=== PATIENT | male | born 1995 | race Hispanic/Latino ===

== ENCOUNTER 2022-12-21 10:00 | Emergency (ER) | payer OTHER, SELFPAY ==
[2022-12-21 10:25] VITALS: BP 151/78; PULSE 82; RESP 18; TEMP 37.1; O2SAT 100
[2022-12-21] MEDS: TETANUS,DIPHTHERIA,AC PERTUSSIS ADULT (0.5 ML) BOOSTRIX IM (10:43)
--- NOTE | 2022-12-21 10:48 | ED.GENADULT ---
HPI - General Adult General Chief complaint: Wound/Laceration Stated complaint: Left Hand Laceration Source: patient and other ([facility]) Mode of arrival: ambulatory Limitations: language barrier History of Present Illness HPI narrative: Patient presents for evaluation of laceration to the 5th digit of the left hand. Symptom onset just prior to arrival. He was doing some navid work was using a metal tool when it cut him. Pain has been constant since that time, rated 8/10 in severity, without descriptive quality. He does have damage to the nail plate. He is not diabetic. He does not smoke. He is right-hand dominant. Denies paresthesias. Date of last tetanus unknown. Related Data Home Medications Medication Instructions Recorded Confirmed No Home Medications 12/21/22 12/21/22 Allergies Allergy/AdvReac Type Severity Reaction Status Date / Time No Known Allergies Allergy Verified 12/21/22 10:37 Review of Systems Review of Systems: CONSTITUTIONAL: Denies fever, chills, or sweats. EYES: Denies visual changes, redness, or discharge. ENT: Denies rhinorrhea, congestion, sore throat, or otalgia. CARDIOVASCULAR: Denies chest pain, palpitations, or edema. RESPIRATORY: Denies cough or dyspnea. GASTROINTESTINAL: Denies abdominal pain, nausea, vomiting, or diarrhea. GENITOURINARY: Denies dysuria or hematuria. SKIN: reports laceration to the 5th digit left hand MUSCULOSKELETAL: Reports pain in the 5th digit of the left hand NEUROLOGIC: Denies headache, numbness, dizziness, or weakness. PSYCHIATRIC: Denies anxiety or depression. [facility] Past Medical History Medical History No pertinent past medical history Surgical History Surgical History No pertinent past surgical history Family History Family History (Updated 12/21/22 @ 10:50 by ALO Oh, ) Mother Family history non-contributory Social History Social History Smoking status: Never smoker Substance use: never Living arrangements: with family Gender identity (if verbalized by the patient): Male Spiritual care concerns: No Exam Narrative: GENERAL: Well-appearing, well-nourished, and in no acute distress. HEAD: Normocephalic, atraumatic. EYES: PERRLA and EOMI. ENT: Nares clear, no rhinorrhea or epistaxis. Mucous membranes moist. Oropharynx without tonsillar hypertrophy exudate or other lesions. Bilateral TMs pearly vivar nonbulging NECK: Supple. No adenopathy or masses. No carotid bruits or JVD CHEST: Clear to auscultation. No respiratory distress. No wheezes rales or rhonchi HEART: Regular rate and rhythm. No murmur heard. Normal peripheral pulses. ABDOMEN: Soft, nontender, nondistended, normal active bowel sounds. EXTREMITIES: tenderness noted in the distal phalanx of the 5th digit of the left hand SKIN: Approximately 1.5 cm laceration to the 5th digit left hand involving the distal phalanx. This is a complex laceration with a flap adjacent to the nail plate. Laceration involves nailplate in transverse formation NEURO: No focal deficits. Alert and oriented x3. PSYCH: Normal mood and affect. Course Course Emergency Course: This is a 27-year-old male who presented for evaluation of laceration to the 5th digit left hand. Laceration is complex and he would likely benefit from closure by specialist. I contacted [facility] and spoke with Latonia in the [facility]. She indicates that Dr. Gipson will agree to accept patient to the emergency department there. Patient was updated on tetanus and wound was clean. Transported by private vehicle. Level of Care: Express Care Visit Vital Signs Vital signs: Vital Signs Temperature 37.1 C 12/21/22 10:25 Pulse Rate 82 12/21/22 10:25 Respiratory Rate 18 12/21/22 1
== END 2022-12-21 10:58 | disposition short-term general hospital (02) ==
PROVIDERS: Emergency Provider Nurse Practitioner
DX: S61.317A Laceration without foreign body of left little finger with damage to nail, initial encounter (principal); W27.8XXA Contact with other nonpowered hand tool, initial encounter; Z23 Encounter for immunization
CPT/HCPCS: 90471; 90715; 99202; G0463